=== PATIENT | female | born 1970 | race Caucasian/White ===

== ENCOUNTER 2019-12-07 07:33 | Day surgery (SDC) | payer BC, OTHER ==
[2019-12-05 13:03] VITALS: BMI 29.4
[~2019-12-07 07:33] MED LIST: LACTATED RINGERS 1,000 ML IV SCH
[2019-12-07] MEDS ORDERED: LIDOCAINE 1% (10MG/ML) FOR IV START INTRADERMA ONE (08:45)
[2019-12-07 08:47] VITALS: RESP 16; TEMP 97.2
[2019-12-07] MEDS ORDERED: PROPOFOL 10 MG/ML 20 ML VIAL IV ONE (09:52)
--- NOTE | 2019-12-07 10:10 | P.PCN ---
Date of Procedure: 12/07/19 Procedure(s) Performed: BRIEF HISTORY: Patient is a 49-year-old pleasant female scheduled for an elective colonoscopy as a part of screening for colon cancer. PROCEDURE PERFORMED: Colonoscopy. PREOPERATIVE DIAGNOSIS: Screening for colon cancer. IV sedation per Anesthesia. PROCEDURE: After informed consent was obtained, the patient, was brought into the endoscopy unit. IV sedation was administered by Anesthesia under continuous monitoring. Digital rectal examination was normal. Initially the Olympus CF-160 flexible video colonoscope was then inserted in the rectum, gradually advanced into the cecum without any difficulty. Careful examination was performed as the scope was gradually being withdrawn. Ileocecal valve and the appendiceal orifice were visualized and appeared normal. Prep was excellent. Mucosa of the cecum, ascending colon, transverse colon, descending colon, sigmoid colon, and rectum appeared normal. Retroflexion was performed in the rectum and no lesions were seen. The patient tolerated the procedure well. IMPRESSION: Normal-appearing colon from rectum to cecum with no evidence of colorectal neoplasia. RECOMMENDATIONS: Findings of this examination were discussed with the patient as well as a family. She was advised to have a repeat screening colonoscopy in 10 years..
[2019-12-07 10:27] VITALS: BP 118/55; PULSE 55
== END 2019-12-07 11:00 | disposition home or self-care (01) ==
LOC: ORWHC2ENDO 07:33
PROVIDERS: ATTEND Internal Medicine Gastroenterology
DX: Z12.11 Encounter for screening for malignant neoplasm of colon (principal); E07.9 Disorder of thyroid, unspecified; Z98.51 Tubal ligation status; Z79.890 Hormone replacement therapy
CPT/HCPCS: 81025; 45378; J2704

== ENCOUNTER 2021-01-23 11:38 | Emergency (ER) | payer BC, OTHER ==
[2021-01-23 11:51] VITALS: TEMP 98
[2021-01-23] MEDS ORDERED: methylPREDNISolone SOD SUCCI 125 MG/2 ML VIAL IV STA (13:27)
--- NOTE | 2021-01-23 13:30 | ED ---
General Adult HPI - General Chief complaint: ENT Stated complaint: throat swelling Time Seen by Provider: 01/23/21 12:58 Source: patient, family, RN notes reviewed Mode of arrival: ambulatory Limitations: no limitations - History of Present Illness Initial comments: Patient is a pleasant 50-year-old female presenting to the emergency department with concerns for tightness/swelling of the throat. Onset of symptoms was around 1 week ago. Patient was on antibiotics for questionable ear infection. Patient was eating a chip with sudden onset of symptoms that were mild. Does have somewhat progressed since that time. Patient states she does not feel anxious. Patient states she becomes short of breath and has a hard time when she tries to swallow. At rest symptoms are more mild. No chest pain. Patient does not visualize any swelling on the outside and feels like it is inside of her throat. No history of similar symptoms previously. - Related Data Home Medications Medication Instructions Recorded Confirmed Acyclovir 400 mg PO Q8H 01/23/21 01/23/21 Albuterol Inhaler [Ventolin Hfa 2 puff INHALATION RT-Q4H PRN 01/23/21 01/23/21 Inhaler] Budesonide/Formoterol Fumarate 2 puff INHALATION RT-BID 01/23/21 01/23/21 [Symbicort 80-4.5 Mcg Inhaler] Clobetasol Propionate [Temovate 1 applic TOPICAL DAILY 01/23/21 01/23/21 0.05% Oint] Ibuprofen [Motrin Ib] 400 - 800 mg PO Q8H PRN 01/23/21 01/23/21 Levothyroxine Sodium [Synthroid] 137 mcg PO DAILY 01/23/21 01/23/21 Montelukast [Singulair] 10 mg PO HS 01/23/21 01/23/21 Omeprazole 20 mg PO DAILY 01/23/21 01/23/21 Previous Rx's Medication Instructions Recorded predniSONE [Deltasone] 20 mg PO BID #10 tab 01/23/21 Allergies Allergy/AdvReac Type Severity Reaction Status Date / Time No Known Allergies Allergy Verified 01/23/21 13:42 Review of Systems ROS Statement: Those systems with pertinent positive or pertinent negative responses have been documented in the HPI. ROS Other: All systems not noted in ROS Statement are negative. Constitutional: Denies: fever Eyes: Denies: eye pain ENT: Reports: as per HPI Respiratory: Reports: as per HPI. Denies: cough Cardiovascular: Denies: chest pain Endocrine: Denies: fatigue Gastrointestinal: Denies: abdominal pain Genitourinary: Denies: urgency Musculoskeletal: Denies: back pain Skin: Denies: rash Neurological: Denies: weakness Past Medical History Past Medical History: Asthma, Thyroid Disorder History of Any Multi-Drug Resistant Organisms: None Reported Past Surgical History: Tubal Ligation, Uterine Ablation Past Anesthesia/Blood Transfusion Reactions: No Reported Reaction Past Psychological History: No Psychological Hx Reported Smoking Status: Former smoker Past Alcohol Use History: None Reported Past Drug Use History: None Reported - Past Family History Mother Family Medical History: No Reported History General Exam Limitations: no limitations General appearance: alert, in no apparent distress Head exam: Present: normocephalic Eye exam: Present: normal appearance, PERRL ENT exam: Present: normal oropharynx Neck exam: Present: normal inspection. Absent: tenderness, meningismus, lymphadenopathy, thyromegaly Respiratory exam: Present: normal lung sounds bilaterally Cardiovascular Exam: Present: regular rate, normal rhythm GI/Abdominal exam: Present: soft. Absent: tenderness Extremities exam: Present: normal inspection Neurological exam: Present: alert Psychiatric exam: Present: normal affect, normal mood Skin exam: Present: normal color Course Vital Signs 01/23/21 01/23/21 11:48 14:40 Temperature 98 F Pulse Rate 64 57 L Respiratory 20 20 Rate Blood Pressure 144/86 121/75 O2 Sat by Pulse 98 98 Oximetry EKG Findings - EKG Comments: EKG Findings:: Sinus bradycardia with a rate of 51. RI 136. QRS 86. QT 440. QTc 405. Normal axis. Normal QRS. No acute ST change. Medical Decision Making - Medical Decision Making Patient reevaluated. Patient and family updated. Patient does feel mildly better following steroids. Patient will be prescribed steroids for the next few days. Patient is advised close follow-up with primary care physician and ENT and to return if symptoms worsen - Lab Data Result diagrams: 01/23/21 13:37 01/23/21 13:37 Lab Results 01/23/21 01/23/21 01/23/21 Range/Units 13:37 13:37 14:40 WBC 8.2 (3.8-10.6) k/uL RBC 5.13 (3.80-5.40) m/uL Hgb 14.9 (11.4-16.0) gm/dL Hct 45.9 (34.0-46.0) % MCV 89.5 (80.0-100.0) fL MCH 29.0 (25.0-35.0) pg MCHC 32.4 (31.0-37.0) g/dL RDW 12.1 (11.5-15.5) % Plt Count 225 (150-450) k/uL MPV 9.8 Neutrophils % 68 % Lymphocytes % 25 % Monocytes % 4 % Eosinophils % 1 % Basophils % 1 % Neutrophils # 5.6 (1.3-7.7) k/uL Lymphocytes # 2.0 (1.0-4.8) k/uL Monocytes # 0.3 (0-1.0) k/uL Eosinophils # 0.1 (0-0.7) k/uL Basophils # 0.1 (0-0.2) k/uL Sodium 140 (137-145) mmol/L Potassium 4.5 (3.5-5.1) mmol/L Chloride 104 (98-107) mmol/L Carbon Dioxide 25 (22-30) mmol/L Anion Gap 11 mmol/L BUN 11 (7-17) mg/dL Creatinine 0.80 (0.52-1.04) mg/dL Est GFR (CKD-EPI)AfAm >90 (>60 ml/min/1.73 sqM) Est GFR (CKD-EPI)NonAf 86 (>60 ml/min/1.73 sqM) Glucose 95 (74-99) mg/dL Calcium 10.0 (8.4-10.2) mg/dL Total Bilirubin 0.6 (0.2-1.3) mg/dL AST 23 (14-36) U/L ALT 16 (4-34) U/L Alkaline Phosphatase 82 (38-126) U/L Total Protein 7.7 (6.3-8.2) g/dL Albumin 4.4 (3.5-5.0) g/dL Group A Strep Rapid Negative (Negative) - Radiology Data Radiology results: report reviewed (CT scanned soft tissue neck shows 1.3 cm lymph node. Decreased enhancement of thyroid gland.) Disposition Clinical Impression: Swollen throat Disposition: HOME SELF-CARE Condition: Stable Additional Instructions: Please follow-up with primary care physician in the next day or 2 for recheck. Please also follow-up with ENT in the next couple of days, number provided. Consider scope. Return for difficulty breathing, not tolerating oral intake, worsening symptoms or any other concerns. Prescription for steroids has been sent to pharmacy. Prescriptions: predniSONE [Deltasone] 20 mg PO BID #10 tab Is patient prescribed a controlled substance at d/c from ED?: No Referrals: Sukhdev Berg DO [Primary Care Provider] - 1-2 days Jeyson Kaur MD [STAFF PHYSICIAN] - 1-2 days Time of Disposition: 15:09
[2021-01-23 13:43] LABS: Basophils # (A) 0.1 k/uL (0-0.2); Basophils % (A) 1 %; Eosinophils # (A) 0.1 k/uL (0-0.7); Eosinophils % (A) 1 %; HCT 45.9 % (34.0-46.0); HGB 14.9 gm/dL (11.4-16.0); Lymphocytes % (A) 25 %; MCHC 32.4 g/dL (31.0-37.0); MCV 89.5 fL (80.0-100.0); Mean Platelet Volume 9.8; Monocytes # (A) 0.3 k/uL (0-1.0); Monocytes % (A) 4 %; Neutrophils # (A) 5.6 k/uL (1.3-7.7); Neutrophils % (A) 68 %; Platelet Count 225 k/uL (150-450); RBC 5.13 m/uL (3.80-5.40); RDW 12.1 % (11.5-15.5); WBC 8.2 k/uL (3.8-10.6)
[2021-01-23 14:03] LABS: ALT 16 U/L (4-34); AST 23 U/L (14-36); African American GFR (CKD) >90 (>60 ml/min/1.73 sqM); Albumin 4.4 g/dL (3.5-5.0); Alkaline Phosphatase 82 U/L (38-126); Anion Gap 11 mmol/L; Blood Urea Nitrogen 11 mg/dL (7-17); Carbon Dioxide 25 mmol/L (22-30); Chloride 104 mmol/L (98-107); Glucose 95 mg/dL (74-99); Non-African American GFR(CKD) 86 (>60 ml/min/1.73 sqM); Potassium 4.5 mmol/L (3.5-5.1); Sodium 140 mmol/L (137-145); Total Bilirubin 0.6 mg/dL (0.2-1.3); Total Protein 7.7 g/dL (6.3-8.2)
--- NOTE | 2021-01-23 14:53 | CT ---
EXAMINATION TYPE: CT soft tissue neck w con DATE OF EXAM: 01/23/2021 COMPARISON: None HISTORY: 50-year-old female Throat swelling TECHNIQUE: Contiguous axial scanning of the soft tissues of the neck performed with IV Contrast, cheryl ent injected with 100 mL of Isovue 300. Coronal/sagittal reconstructions performed. CT DLP: 203.5 mGycm Automated exposure control for dose reduction was used. FINDINGS: Visualized intracranial structures and mastoid air cells appear clear. Small 9 mm polyp or mucosal re tention cyst posterior right maxillary sinus. Nasopharynx is clear. Mild bilateral palatine tonsillar hypertrophy with punctate calcifications suggesting sequela of prio r infection. Epiglottis and prevertebral soft tissues within normal limits. Mild lingual tonsillar hypertrophy. Glottic and subglottic structures as well as the tracheal column and visualized upper lungs are clear . Azygos fissure noted. Thyroid gland shows diminished enhancement. Submandibular glands are satisfactory. Parotid glands slightly atrophic. Borderline sized 1.3 cm short axis right upper cervical lymph node, axial image 56 and sagittal image 28. Otherwise, scattered nonenlarged lymph nodes are present on both sides of the neck. Bones: Mild degenerative disc disease C5-C6. IMPRESSION: 1. THE THYROID GLAND IS NOT ENHANCING MUCH EXPECTED. CORRELATE TO EXCLUDE THE POSSIBILITY OF SO ME GLANDULAR INFLAMMATION SUCH SUBACUTE THYROIDITIS. 2. MILD BILATERAL PALATINE TONSILLAR HYPERTROPHY. 3. BORDERLINE SIZED 1.3 CM SHORT AXIS RIGHT UPPER CERVICAL LYMPH NODE PROBABLY REACTIVE. THIS SHOULD BE FOLLOWED CLINICALLY. IF ANY ENLARGING PALPABLE ABNORMALITY IS DETECTED, FOLLOW-UP ULTRASOUND OR CT .
[2021-01-23 15:32] LABS: T4, Free (Free Thyroxine) 1.41 ng/dL (0.78-2.19)
[2021-01-23 17:31] VITALS: BP 139/84; PULSE 60; RESP 18
== END 2021-01-23 17:32 | disposition home or self-care (01) ==
LOC: EC 11:38
DX: R22.1 Localized swelling, mass and lump, neck (principal); J45.909 Unspecified asthma, uncomplicated; E07.9 Disorder of thyroid, unspecified; Z79.51 Long term (current) use of inhaled steroids; Z87.891 Personal history of nicotine dependence; Z79.890 Hormone replacement therapy
CPT/HCPCS: 36415; 93005; 84439; 84481; 80053; 84443; 85025; 87081; 87430; 70491; 99284; 96374; J2930; Q9967

== ENCOUNTER 2021-01-29 17:05 | Emergency (ER) | payer BC, OTHER ==
[2021-01-29] MEDS ORDERED: FAMOTIDINE 20 MG/2 ML VIAL IV STA (17:28)
[2021-01-29] MEDS ORDERED: methylPREDNISolone SOD SUCCI 125 MG/2 ML VIAL IV STA (17:28)
[2021-01-29] MEDS ORDERED: diphenhydrAMINE 50 MG/ML 1 ML VIAL IVP STA (17:28)
[2021-01-29 18:00] LABS: Basophils # (A) 0.1 k/uL (0-0.2); Basophils % (A) 1 %; Eosinophils # (A) 0.1 k/uL (0-0.7); Eosinophils % (A) 1 %; HCT 42.2 % (34.0-46.0); HGB 14.1 gm/dL (11.4-16.0); Lymphocytes % (A) 46 %; MCH 29.6 pg (25.0-35.0); MCHC 33.4 g/dL (31.0-37.0); MCV 88.6 fL (80.0-100.0); Mean Platelet Volume 9.8; Monocytes # (A) 0.6 k/uL (0-1.0); Monocytes % (A) 5 %; Neutrophils # (A) 5.5 k/uL (1.3-7.7); Neutrophils % (A) 46 %; Platelet Count 233 k/uL (150-450); RBC 4.76 m/uL (3.80-5.40); RDW 12.3 % (11.5-15.5); WBC 12.1 k/uL (3.8-10.6)
[2021-01-29 18:07] LABS: Lymphocytes # (A) 5.5 k/uL (1.0-4.8)
[2021-01-29 18:09] LABS: ALT 19 U/L (4-34); AST 21 U/L (14-36); African American GFR (CKD) >90 (>60 ml/min/1.73 sqM); Albumin 3.9 g/dL (3.5-5.0); Alkaline Phosphatase 83 U/L (38-126); Anion Gap 9 mmol/L; Blood Urea Nitrogen 20 mg/dL (7-17); Calcium 9.7 mg/dL (8.4-10.2); Carbon Dioxide 26 mmol/L (22-30); Chloride 101 mmol/L (98-107); Glucose 90 mg/dL (74-99); Non-African American GFR(CKD) 85 (>60 ml/min/1.73 sqM); Potassium 3.7 mmol/L (3.5-5.1); Sodium 136 mmol/L (137-145); Total Bilirubin 0.5 mg/dL (0.2-1.3); Total Protein 6.9 g/dL (6.3-8.2)
[2021-01-29 18:17] LABS: Partial Thromboplastin Time 22.1 sec (22.0-30.0)
--- NOTE | 2021-01-29 18:42 | XR ---
EXAMINATION TYPE: XR soft tissue neck. DATE OF EXAM: January 29, 2021. COMPARISON: CT neck 01/23/2021 HISTORY: Shortness of breath TECHNIQUE: AP and lateral views of the soft tissues of the neck were obtained. FINDINGS: The airway is patent. No radiopaque foreign body. No prevertebral soft tissue swelling. Straightening of the cervical lordosis. IMPRESSION: Unremarkable radiograph soft tissue neck.
--- NOTE | 2021-01-29 18:44 | XR ---
EXAMINATION TYPE: XR chest 2V DATE OF EXAM: 01/29/2021 COMPARISON: NONE HISTORY: Shortness of breath. TECHNIQUE: Frontal and lateral views of the chest are obtained. FINDINGS: There is no focal air space opacity, pleural effusion, or pneumothorax seen. The cardiac silhouette size is within normal limits. Azygos fissure. The osseous structures are intact. IMPRESSION: No acute cardiopulmonary process.
--- NOTE | 2021-01-29 19:19 | ED ---
ENT HPI - General Chief complaint: ENT Stated complaint: revisit - feels like throat is closing Time Seen by Provider: 01/29/21 17:15 Source: patient, EMS Mode of arrival: EMS - History of Present Illness Initial comments: 50-year-old female presents emergency Department with the sensation that her throat is closing off. Patient was seen in the emergency department on the for similar complaint. Reports that previous to that, approximately a week and a half ago she was eating food when she began choking on one of the fragments. States that she had some difficulty breathing and swallowing however was eventually able to pass the food. She reports feeling fine the next day. She subsequently then began having painful swallowing with a sensation that something was in her throat. She felt a primary care doctor they placed her on azithromycin. States she's been taking the medications as directed without improvement. She came into the emergency room on 8. They did perform a CT of her neck which failed to demonstrate any acute findings. She was placed on st eroids. States that she has been taking the medication as directed. She ended up having an episode today where she was at work and had sudden onset that someone was grabbing her throat. That she couldn't breathe or swallow. She called an ambulance and brought her into the emergency room. She denies any new exposures. No history of anaphylaxis. Does have a history of asthma however states is very mild and only exercise-induced. She denies any chest pain or cough. No nausea or vomiting. Denies hives. No other alleviating, precipitating or modifying factors - Related Data Home Medications Medication Instructions Recorded Confirmed Albuterol Inhaler [Ventolin Hfa 2 puff INHALATION RT-Q4H PRN 01/23/21 02/04/21 Inhaler] Budesonide/Formoterol Fumarate 2 puff INHALATION RT-BID 01/23/21 02/04/21 [Symbicort 80-4.5 Mcg Inhaler] Levothyroxine Sodium [Synthroid] 137 mcg PO DAILY 01/23/21 02/04/21 Montelukast [Singulair] 10 mg PO HS 01/23/21 02/04/21 Omeprazole 20 mg PO DAILY 01/23/21 02/04/21 predniSONE 10 mg PO DIRECTED 02/04/21 02/04/21 Previous Rx's Medication Instructions Recorded EPINEPHrine (Auto Inject) [Epipen] 0.3 mg IM ONCE PRN #2 each 01/29/21 Allergies Allergy/AdvReac Type Severity Reaction Status Date / Time No Known Allergies Allergy Verified 02/04/21 12:56 Review of Systems ROS Statement: Those systems with pertinent positive or pertinent negative responses have been documented in the HPI. ROS Other: All systems not noted in ROS Statement are negative. Past Medical History Past Medical History: Asthma, Thyroid Disorder History of Any Multi-Drug Resistant Organisms: None Reported Past Surgical History: Tubal Ligation, Uterine Ablation Past Anesthesia/Blood Transfusion Reactions: No Reported Reaction Past Psychological History: No Psychological Hx Reported Smoking Status: Former smoker Past Alcohol Use History: None Reported Past Drug Use History: None Reported - Past Family History Mother Family Medical History: No Reported History General Exam General appearance: alert, anxious, in distress Head exam: Present: atraumatic, normocephalic, normal inspection Eye exam: Present: normal appearance, PERRL, EOMI. Absent: scleral icterus, conjunctival injection, periorbital swelling ENT exam: Present: normal exam, mucous membranes moist Neck exam: Present: normal inspection. Absent: tenderness, meningismus, lymphadenopathy, thyromegaly Respiratory exam: Present: normal lung sounds bilaterally. Absent: respiratory distress, wheezes, rales, rhonchi, stridor Cardiovascular Exam: Present: regular rate, normal rhythm, normal heart sounds. Absent: systolic murmur, diastolic murmur, rubs, gallop, clicks GI/Abdominal exam: Present: soft, normal bowel sounds. Absent: distended, tenderness, guarding, rebound, rigid Extremities exam: Present: normal inspection, full ROM, normal capillary refill. Absent: tenderness, pedal edema, joint swelling, calf tenderness Back exam: Present: normal inspection Neurological exam: Present: alert, oriented X3, CN II-XII intact Psychiatric exam: Present: normal affect, normal mood Skin exam: Present: warm, dry, intact, normal color. Absent: rash Course Vital Signs 01/29/21 01/29/21 01/29/21 17:14 18:44 21:00 Temperature 98 F 97.5 F L Pulse Rate 65 52 L 54 L Respiratory 18 18 16 Rate Blood Pressure 165/88 139/77 158/86 O2 Sat by Pulse 99 98 98 Oximetry 01/29/21 01/29/21 01/29/21 21:58 22:07 22:47 Temperature 97.6 F Pulse Rate 64 71 71 Respiratory 16 Rate Blood Pressure 109/64 O2 Sat by Pulse 98 Oximetry 01/29/21 23:33 Temperature 97.5 F L Pulse Rate 82 Respiratory 16 Rate Blood Pressure 125/70 O2 Sat by Pulse 98 Oximetry Medical Decision Making - Medical Decision Making Upon arrival patient was placed into hallway at 11. A thorough history and physical exam was performed. IV is established by EMS. She was given 25 mg of Benadryl by them. She is given an additional 25 mg of Benadryl from os as well as 125 of Solu-Medrol and 20 mg of Pepcid. Laboratories is her conducted. I did review the patient's CT from the other day. Laboratory studies are reviewed. I did perform a chest x-ray which demonstrates no acute process as well as a soft tissue neck x-ray. I did call and speak with Dr. Ramey. He does request that the patient had a CT of her chest performed which is completed and is negative. I spoke with him once again. He does present to the emergency department and does scope the patient. He gave her epinephrine but states that she did not have any real improvement in her symptoms. At this time he states that her airway is stable without signs of compromise. She will be placed on a 15 day course of prednisone. She will also be given a prescription for an EpiPen. She is to follow-up with Dr. Ramey in office. Return to the emergency room for any new or worsening symptoms. Patient agreed to treatment plan she was discharged in stable condition - Lab Data Result diagrams: 01/29/21 17:51 01/29/21 17:51 Lab Results 01/29/21 01/29/21 01/29/21 Range/Units 17:51 17:51 17:51 WBC 12.1 H (3.8-10.6) k/uL RBC 4.76 (3.80-5.40) m/uL Hgb 14.1 (11.4-16.0) gm/dL Hct 42.2 (34.0-46.0) % MCV 88.6 (80.0-100.0) fL MCH 29.6 (25.0-35.0) pg MCHC 33.4 (31.0-37.0) g/dL RDW 12.3 (11.5-15.5) % Plt Count 233 (150-450) k/uL MPV 9.8 Neutrophils % 46 % Lymphocytes % 46 % Monocytes % 5 % Eosinophils % 1 % Basophils % 1 % Neutrophils # 5.5 (1.3-7.7) k/uL Lymphocytes # 5.5 H (1.0-4.8) k/uL Monocytes # 0.6 (0-1.0) k/uL Eosinophils # 0.1 (0-0.7) k/uL Basophils # 0.1 (0-0.2) k/uL PT 11.0 (9.0-12.0) sec INR 1.0 (<1.2) APTT 22.1 (22.0-30.0) sec Sodium 136 L (137-145) mmol/L Potassium 3.7 (3.5-5.1) mmol/L Chloride 101 (98-107) mmol/L Carbon Dioxide 26 (22-30) mmol/L Anion Gap 9 mmol/L BUN 20 H (7-17) mg/dL Creatinine 0.81 (0.52-1.04) mg/dL Est GFR (CKD-EPI)AfAm >90 (>60 ml/min/1.73 sqM) Est GFR (CKD-EPI)NonAf 85 (>60 ml/min/1.73 sqM) Glucose 90 (74-99) mg/dL Plasma Lactic Acid Jack (0.7-2.0) mmol/L Calcium 9.7 (8.4-10.2) mg/dL Total Bilirubin 0.5 (0.2-1.3) mg/dL AST 21 (14-36) U/L ALT 19 (4-34) U/L Alkaline Phosphatase 83 (38-126) U/L Troponin I (0.000-0.034) ng/mL Total Protein 6.9 (6.3-8.2) g/dL Albumin 3.9 (3.5-5.0) g/dL 01/29/21 01/29/21 Range/Units 17:51 17:51 WBC (3.8-10.6) k/uL RBC (3.80-5.40) m/uL Hgb (11.4-16.0) gm/dL Hct (34.0-46.0) % MCV (80.0-100.0) fL MCH (25.0-35.0) pg MCHC (31.0-37.0) g/dL RDW (11.5-15.5) % Plt Count (150-450) k/uL MPV Neutrophils % % Lymphocytes % % Monocytes % % Eosinophils % % Basophils % % Neutrophils # (1.3-7.7) k/uL Lymphocytes # (1.0-4.8) k/uL Monocytes # (0-1.0) k/uL Eosinophils # (0-0.7) k/uL Basophils # (0-0.2) k/uL PT (9.0-12.0) sec INR (<1.2) APTT (22.0-30.0) sec Sodium (137-145) mmol/L Potassium (3.5-5.1) mmol/L Chloride (98-107) mmol/L Carbon Dioxide (22-30) mmol/L Anion Gap mmol/L BUN (7-17) mg/dL Creatinine (0.52-1.04) mg/dL Est GFR (CKD-EPI)AfAm (>60 ml/min/1.73 sqM) Est GFR (CKD-EPI)NonAf (>60 ml/min/1.73 sqM) Glucose (74-99) mg/dL Plasma Lactic Acid Jack 1.1 (0.7-2.0) mmol/L Calcium (8.4-10.2) mg/dL Total Bilirubin (0.2-1.3) mg/dL AST (14-36) U/L ALT (4-34) U/L Alkaline Phosphatase (38-126) U/L Troponin I <0.012 (0.000-0.034) ng/mL Total Protein (6.3-8.2) g/dL Albumin (3.5-5.0) g/dL - EKG Data EKG Comments: EKG demonstrates sinus tachycardia with a ventricular rate of 49. [place] interval 124. QRS 92. QTC 386. No acute st elevations or depressions concerning for ischemic changes. No signs of high degree block Disposition Clinical Impression: Globus sensation Disposition: HOME SELF-CARE Condition: Stable Instructions (If sedation given, give patient instructions): Anaphylaxis (ED) Additional Instructions: Please follow-up with the ENT as directed. Take the steroids as directed. Return to the emergency room for any new or worsening symptoms Prescriptions: EPINEPHrine (Auto Inject) [Epipen] 0.3 mg IM ONCE PRN #2 each PRN Reason: Anaphylaxis Is patient prescribed a controlled substance at d/c from ED?: No Referrals: Sukhdev Berg DO [Primary Care Provider] - 1-2 days Nasim Rubio DO [Doctor of Osteopathic Medicine] - 1-2 days Time of Disposition: 22:55
[2021-01-29] MEDS ORDERED: RX INFO: IV CONTRAST WAS GIVEN 1 EACH MISC MISCELLANE PRN (19:36)
--- NOTE | 2021-01-29 20:28 | CT ---
EXAMINATION TYPE: CT chest w con DATE OF EXAM: 01/29/2021 COMPARISON: CT soft tissue neck January 2021. HISTORY: airway foreign body CT DLP: 255.1 mGycm Automated exposure control for dose reduction was used. TECHNIQUE: CT scan of the chest is performed with IV Contrast, patient injected with 100 mL of Isovue 300. MIP Images are created on CT scanner and reviewed. 3D reconstructed images are created on an independent workstation and reviewed. FINDINGS: LUNGS: The lungs are grossly clear, there is no concerning parenchymal mass or nodule identified. T here is no pleural effusion or pneumothorax seen. The tracheobronchial tree is patent. MEDIASTINUM: There are no greater than 1 cm hilar or mediastinal lymph nodes. No pericardial effusi on is seen. Contrast opacifies the central pulmonary arterial vasculature without of the segmental ve ssels without filling defect. Limited assessment of the subsegmental and subsegmental vessels due to poor opacification. OTHER: No additional significant abnormality is seen. IMPRESSION: 1. No pulmonary embolus. 2. No acute process in the chest.
[2021-01-29 21:08] VITALS: RESP 16
[2021-01-29] MEDS ORDERED: EPINEPHrine 10 ML SYRINGE (0.1 MG/ML) IM STA ×4 (21:50→22:15)
[2021-01-29] MEDS ORDERED: predniSONE 20 MG TAB PO STA (22:53)
[2021-01-29 23:37] VITALS: BP 125/70; PULSE 82; TEMP 97.5
--- NOTE | 2021-01-30 09:40 | HP ---
HISTORY AND PHYSICAL DATE OF SERVICE: 01/29/2021. REFERRING PHYSICIAN: Dr. Maria Ines Mon. CHIEF COMPLAINT: Throat tightness. HISTORY OF PRESENT ILLNESS: This patient tells me about 2 weeks ago her throat started to feel tight. Two days previously she aspirated on a Dorito chip. The emergency room physician did a chest CT scan and neck CT scan which was normal. I am unable to see the results as the computer system here at [facility] has gone down, but the emergency room physician said that the CT scan of the chest and neck was unremarkable. She gets throat tightening, worse after she eats. She tells me her dysphagia is a bit of a muscular type of tightness to her throat. She points to the thyroid gland. She has a longstanding history of Joan's. Her throat feels like it is squeezing shut. She works at a local [employer] department. She has been found to be ALLERGIC TO POLLEN AND MOLD. Her diet is unremarkable. She has been worked up at an asthma clinic at the [facility] and was diagnosed with asthma. She was found to have shortness of breath with exercise many years ago and is currently on Singulair. PAST MEDICAL HISTORY: Positive for Joan's thyroiditis. PAST SURGICAL HISTORY: Positive for tubal ligation and uterine ablation. ALLERGIES: POLLEN AND MOLD, but no known drug allergies. SOCIAL HISTORY: Denies smoking, drinking. REVIEW OF SYSTEMS: Twelve point examination was unremarkable. See H and P. PHYSICAL EXAMINATION: Vital signs are stable. Patient is afebrile. GENERAL: Patient is alert, oriented, pleasant, 50-year-old white female in no apparent distress. Well nourished, well developed. No gross abnormalities. HEAD: Normocephalic. The face is symmetric. There is acne scarring seen. The scalp shows no tumors or masses. Ear: Auricles are well formed. The canals are clear. Tympanic membranes without bulging or retraction. Nose shows some allergic type swelling. Inferior turbinates are hypertrophic positive. Mouth and throat: No oral lesions are seen. Tongue, tonsillar fossa, teeth, mouth all appear unremarkable. Neck shows some tenderness to the thyroid gland, but no tumors or masses were palpable. IMPRESSIONS: Dysphagia and globus pharyngeus rule out Joan's, rule out anaphylaxis. PLAN OF TREATMENT: I had instructed the nurse to give her 2 injections of epinephrine 0.5 mL each. After the injections, she tells me she was slightly better at about 20% but not significant. Working diagnosis is most likely Joan's as the etiology. I have instructed to the ER doctor to place her on prednisone and give her an EpiPen. I have given her my card. She is to follow up with me in the office next week. We will give her 60 mg of prednisone tapering over 3 weeks and an EpiPen in case she worsens. She is to call me if any problems arise in the interim. She is also to follow up with her family physician regarding her Joan's and possibly see an social worker clinical or crm marketing specialist. Repeat food allergy testing is a strong consideration if this problem is persistent. MMODL / IJN: [id number] /
--- NOTE | 2021-01-30 09:43 | OP ---
OPERATIVE REPORT TYPE OF CASE: Elective. SURGEONS: Nasim Rubio D.O. Sponge, instrument and needle count correct. ANESTHESIA: None. PREOPERATIVE DIAGNOSIS: Dysphagia, throat closing. POSTOPERATIVE DIAGNOSIS: Dysphagia, throat closing. OPERATIVE PROCEDURE: Flexible nasopharyngolaryngoscopy. OPERATIVE INDICATIONS: This patient has symptoms of globus pharyngeus, dysphagia and throat closing. Endoscopy to evaluate the airway to the vocal cords was recommended. PROCEDURE DETAILS: An ENF type GP nasopharyngoscope was inserted into the patient's nares on the right side. We followed the floor of the nose to the nasopharynx. There was no signs of any nasopharyngeal pathology. The oropharynx had no pathology. There was some allergic- type drainage seen. The hypopharynx shows some nonspecific erythema appeared to be probable allergic. Reflux may be a consideration, but doubtful. No tumors or masses. Vocal cords are working well. No obstructive phenomenon. I see no subglottic tissues. Epiglottis, base of tongue, and lateral pharynx all appear unremarkable. Mucosa looks good. Allergic-type swelling was noted. The scope was removed and the patient tolerated this well. MMODL / IJN: [id number] /
== END 2021-01-29 23:42 | disposition home or self-care (01) ==
LOC: EC 17:05
DX: R09.89 Other specified symptoms and signs involving the circulatory and respiratory systems (principal); J45.909 Unspecified asthma, uncomplicated; E07.9 Disorder of thyroid, unspecified; Z87.891 Personal history of nicotine dependence; Z79.51 Long term (current) use of inhaled steroids; Z79.890 Hormone replacement therapy
CPT/HCPCS: 96374; 96375; 99285; 96372 ×2; 36415; 93005; 80053; 83605; 84484; 85025; 85610; 85730; 70360; 71046; 71260; J0171; J1200; J2930; J7512; Q9967

== ENCOUNTER 2021-02-06 08:34 | Day surgery (SDC) | payer BC, OTHER ==
[2021-02-04 13:04] VITALS: BMI 23.0
[2021-02-06 09:13] VITALS: TEMP 97.6
[2021-02-06 09:25] LABS: Glucose,Whole Blood 85 mg/dL (75-99)
[2021-02-06] MEDS ORDERED: PROPOFOL 10 MG/ML 20 ML VIAL IV ONE (10:08)
[2021-02-06] MEDS ORDERED: LIDOCAINE 1% INJ 10MG/ML (20 ML MDV) ONE (10:08)
--- NOTE | 2021-02-06 10:14 | P.HPIHPCON ---
History of Present Illness H&P Date: 02/06/21 50-year-old female presents today for upper endoscopy. She states that recently, she has had difficulty tolerating solid foods. She feels as if food is going to get and feels a constant pressure in the throat. She also feels as if she is going to regurgitate food, however has not had to do this. She was recently started on omeprazole but has only started taking that 2 days ago. She is not sure if there is any effect yet. No additional symptoms at this time. Consent for Procedure: I have explained the operation/procedure to the patient, including the risks, benefits, side effects, alternative therapies (including not receiving the proposed treatment or service), the likelihood of the patient achieving his/her goals, and potential recuperation problems for the procedure/sedation/analgesia, as well as any blood products, if indicated. I also explained to the patient the risks, benefits and side effects of the alternatives, as well as the risks related to not receiving the proposed procedure, care, treatment, or services. - Review of Systems All systems: negative Past Medical History Past Medical History: Asthma, GERD/Reflux, Thyroid Disorder Additional Past Medical History / Comment(s): WAS SEEN IN ER R/T FELT LIKE THROAT WAS CLOSING 01/29/21. VERTIGO AT TIMES History of Any Multi-Drug Resistant Organisms: None Reported Past Surgical History: Tubal Ligation, Uterine Ablation Past Anesthesia/Blood Transfusion Reactions: No Reported Reaction Smoking Status: Former smoker - Past Family History Mother Family Medical History: No Reported History Medications and Allergies Home Medications Medication Instructions Recorded Confirmed Type Albuterol Inhaler [Ventolin Hfa 2 puff INHALATION RT-Q4H PRN 01/23/21 02/04/21 History Inhaler] Budesonide/Formoterol Fumarate 2 puff INHALATION RT-BID 01/23/21 02/04/21 History [Symbicort 80-4.5 Mcg Inhaler] Levothyroxine Sodium [Synthroid] 137 mcg PO DAILY 01/23/21 02/04/21 History Montelukast [Singulair] 10 mg PO HS 01/23/21 02/04/21 History Omeprazole 20 mg PO DAILY 01/23/21 02/04/21 History EPINEPHrine (Auto Inject) [Epipen] 0.3 mg IM ONCE PRN #2 each 01/29/21 02/04/21 Rx predniSONE 10 mg PO DIRECTED 02/04/21 02/04/21 History Allergies Allergy/AdvReac Type Severity Reaction Status Date / Time No Known Allergies Allergy Verified 02/04/21 12:56 Surgical - Exam Osteopathic Statement: *. No significant issues noted on an osteopathic structural exam other than those noted in the History and Physical/Consult. Vital Signs Temp Pulse Resp BP Pulse Ox 97.6 F 55 L 18 148/79 99 02/06/21 09:10 02/06/21 09:10 02/06/21 09:10 02/06/21 09:10 02/06/21 09:10 - General no distress - ENT no hearing loss - Respiratory normal respiratory effort - Abdomen Abdomen: soft, non tender Assessment and Plan Plan: Plan is for upper endoscopy. Risks, benefits and alternatives were provided to the patient. Further recommendations after procedure is completed.
--- NOTE | 2021-02-06 10:23 | P.PCN ---
Date of Procedure: 02/06/21 Preoperative Diagnosis: Dysphagia GERD Postoperative Diagnosis: Hiatal hernia Gastritis Duodenitis Procedure(s) Performed: EGD with biopsy Anesthesia: MAC Surgeon: Milind Martinez Pathology: other (Biopsies of esophagus, antrum, duodenum) Condition: stable Disposition: same day Indications for Procedure: 50-year-old female with recent dysphagia. Plan is for upper endoscopy. Risks, benefits and alternatives were provided to the patient. Operative Findings: Mild hiatal hernia Gastritis and duodenitis Description of Procedure: The patient was brought to the endoscopy suite and placed in left lateral decubitus position and adequate sedation was achieved using conscious sedation. A bite block was placed and an endoscope was placed in the oropharynx and advanced under endoscopic visualization. The endoscope was advanced through the esophagus into the stomach, through the gastric antrum and in through the pylorus. The third portion of the duodenum was visualized. The endoscope was then slowly withdrawn. The first portion of duodenum was noted to have mild inflammatory changes. Biopsies were taken. The antrum was also noted to have inflammatory changes. Biopsies were taken. There is no evidence of ulceration. The gastric body distended normally and the gastric folds appeared normal and flattened with insufflation. A retroflexed view of the fundus and GE junction revealed a very mild hiatal hernia. The esophagus appeared endoscopically normal. Biopsies were taken. There were no areas of stricture and no masses noted. Excess air was removed and the scope was withdrawn and the procedure completed. The patient was then sent to postanesthesia care unit in stable condition.
[2021-02-06 10:30] VITALS: RESP 16
[2021-02-06 10:41] VITALS: BP 145/82; PULSE 54
== END 2021-02-06 11:19 | disposition home or self-care (01) ==
LOC: ORWHC2ENDO 08:34
PROVIDERS: ATTEND Surgery
DX: R13.10 Dysphagia, unspecified (principal); K21.9 Gastro-esophageal reflux disease without esophagitis; K29.50 Unspecified chronic gastritis without bleeding; J45.909 Unspecified asthma, uncomplicated; Z87.891 Personal history of nicotine dependence; E07.9 Disorder of thyroid, unspecified; Z79.899 Other long term (current) drug therapy; R00.1 Bradycardia, unspecified
CPT/HCPCS: 81025; 88305; 43239; J2001; J2704

== ENCOUNTER → 2021-02-09 | Outpatient (CLI) | payer BC, OTHER ==
[2021-02-09 21:38] LABS: T4, Free (Free Thyroxine) 1.9 ng/dL (0.800-1.800)
== END | disposition home or self-care (01) ==
LOC: LABWHC1 10:18
PROVIDERS: ATTEND Otolaryngology
DX: E06.9 Thyroiditis, unspecified (principal); R53.83 Other fatigue
CPT/HCPCS: 36415; 84439; 84443; 86376; 86800

== ENCOUNTER → 2021-05-25 | Outpatient (CLI) | payer BC, OTHER ==
[2021-05-25 14:35] LABS: HGB 13.7 g/dL (12.0-15.0); MCH 28.7 pg (27.0-32.0); MCHC 31.9 g/dL (32.0-37.0); MCV 90.1 fL (80.0-97.0); Mean Platelet Volume 11.6 fL (9.5-12.2); NRBC Per 100 WBC 0 /100 WBCS (0.0-0.0); Platelet Count 236 X 10*3/uL (140-440); RBC 4.77 X 10*6/uL (4.10-5.20); RDW 11.9 % (11.5-14.5); WBC 4.54 X 10*3/uL (4.50-10.00)
[2021-05-25 14:53] LABS: ALT 12 U/L (8-44); AST 16 U/L (13-35); African American GFR (CKD) 85.8 (60.0-200.0); Albumin 4.5 g/dL (3.8-4.9); Albumin/Globulin Ratio 1.67 (1.60-3.17); Alkaline Phosphatase 65 U/L (41-126); BUN/Creat Ratio 8.67 Ratio (12.00-20.00); Blood Urea Nitrogen 7.8 mg/dL (9.0-27.0); Calcium 9.7 mg/dL (8.7-10.3); Chloride 102 mmol/L (96-109); Globulin 2.7 g/dL (1.6-3.3); Glucose 82 mg/dL (70-110); LDL Cholesterol,Calculated 158.9 mg/dL (0.0-131.0); Potassium 4.2 mmol/L (3.5-5.5); Sodium 140 mmol/L (135-145); Total Protein 7.2 g/dL (6.2-8.2)
== END | disposition home or self-care (01) ==
LOC: LABWHC1 08:11
PROVIDERS: ATTEND Internal Medicine Endocrinology, Diabetes & Metabolism
DX: E03.8 Other specified hypothyroidism (principal); K21.9 Gastro-esophageal reflux disease without esophagitis
CPT/HCPCS: 36415; 80053; 80061; 82533; 83036; 84443; 85027

== ENCOUNTER → 2021-05-25 | Outpatient (CLI) | payer BC, OTHER ==
--- NOTE | 2021-05-29 11:41 | HM ---
HOLTER MONITOR REPORT DATE OF STUDY: 05/25/2021. INDICATION: Cardiac arrhythmia. The patient was monitored for 24 hours. The baseline rhythm appeared to be sinus mechanism with a minimum heart rate of 44, max heart rate 115 and average heart rate of 64 beats per minute. Ventricular ectopic events presented in less than 1% of the total beats counted and presented mainly isolated PVCs. Supraventricular ectopic events were reported rarely, but the patient did have one short episode of atrial tachycardia. No significant sinus pause or sinus arrest. No diary was attached to the study. CONCLUSION: 1. Sinus rhythm as baseline mechanism. 2. Rare ventricular ectopic events. 3. Rare supraventricular ectopic events. 4. The patient did have one short episode of atrial tachycardia. 5. No significant sinus pause or sinus arrest. 6. No diary was attached to the study. MMODL / IJN: [id number] /
== END | disposition home or self-care (01) ==
LOC: RADECHMAIN 07:33
PROVIDERS: ATTEND Family Medicine
DX: R00.2 Palpitations (principal)
CPT/HCPCS: 93225; 93226

== ENCOUNTER → 2021-08-13 | Outpatient (CLI) | payer BC, OTHER ==
[2021-08-13 14:37] VITALS: BP 136/81; PULSE 69; RESP 18; TEMP 98.7
--- NOTE | 2021-08-13 15:17 | P.CON ---
Consult Note - . Consult date: 08/13/21 Assessment/Plan:: HISTORY OF PRESENT ILLNESS: 51 yr old female with at side as a referral from Dr Bolton presents today with chronic & severe neck and upper back discomfort secondary to mild spinal stenosis, bilateral neuroforaminal stenoses, facet arthropathy and C5-C6 DDD for evaluation. Pt states her neck discomfort is not described as painful as much as she thinks it is "pressure." Patient states she has been experiencing intermittent and unprovoked difficulty breathing and swallowing since December 2020. Patient came to the ER for evaluation of after mentioned. She has since followed up with 3 ENT physicians, gastroenterologists, internists and today with pain management. Upon examination, patient did not exhibit any cervical pain. Patient however did complain of upper back pain, 2 out of 10 in intensity, localized to the midportion of her thoracic spine with radiation of tingling and numbness left and right of midline into the paraspinal muscles. I reviewed CAT scan and MRIs of the cervical spine with the patient. She further would like to explore her upper back issues and is agreeable to an MRI of the thoracic spine. Patient states tingling and numbness is provoked with rotation, extension and flexion of the spine. It is relieved by reclining. Past Medical History: Asthma, GERD/Reflux, Thyroid Disorder Surgical History: Tubal Ligation, Uterine Ablation Social History: Former smoker. No ETOH use. No illicit drug use. Family History: Mother- No Reported History All: NKDA Meds: See list REVIEW OF ORGAN SYSTEMS: CONSTITUTIONAL: No fevers or chills. No recent weight loss. HEENT: No visual acuity loss, eye pain, difficulties with hearing. No nosebleeds. No difficulty swallowing. RESPIRATORY: Denies any troubles with breathing or dyspnea on exertion. CARDIOVASCULAR: Denies any chest pain, palpitations, or recent heart attacks. GASTROINTESTINAL: Denies fatty food intolerance. Has change in bowel habits and gas bloat. GENITOURINARY: Denies any blood in urine. Has increased urinary frequency. NEUROLOGICAL: + numbness and tingling along the distal extremities. No seizure disorders or headaches. MUSCULOSKELETAL: + back pain SKIN: No skin cancer. No rash. PSYCHIATRIC: Denies current depression or suicidal thoughts. ENDOCRINE: Denies current thyroid disorders. Denies any blood sugar glucose intolerance. HEME/LYMPHATIC: Denies any lumps and bumps around the neck. History of deep venous thrombosis. ALLERGY/IMMUNOLOGY: No immunoglobulin therapy. No immune deficiencies. BREAST: Denies current breast lumps, pain or nipple discharge. Physical Examinations : Constitutional : Cooperative , not in acute distress . HEENT: Neck supple. No Lymphadenopathy. Normal thyroid size . Eyes no ptosis , no icterus, no photophobia . Hearing intact. Normal oropharynx. No Thrush. Respiratory : Chest clear to auscultations bilaterally. No wheezing. No rhonchi. Cardiovascular : Regular rate and rhythm , S1 / S2. No S3 . No S4. Gastrointestinal : Abdomen soft. No tenderness. Bowel sounds x 4. No organomegaly . Genitourinary : Deferred. Neurologic : Cranial nerve II to XII intact. No focal neur ological deficits. Psychiatric : alert & oriented x 3. Matching mood & appropriate affect. Judgment & insight intact. Lymphatic No Lymphadenopathy. Musculoskeletal : Cervical Spine Motor strength in the deltoid and biceps: Normal right side. Normal Left side Motor strength biceps and the wrist extensors: Normal right side . Normal left side Motor strength in the triceps muscle: Normal right side. Normal left side Deep tendon reflexes: Normal at the biceps. Normal at Brachioradialis. Normal at triceps Cervical facet loading test: positive bilaterally Spurling test: positive bilaterally Neck distraction test: positive bilaterally Norah sign: positive bilaterally Thoracic spine Paraspinal tenderness to palpation over BL T6-T9 Lumbar spine Motor strength lower extremities ,thigh and legs 5/5 Right side , 5/5 Left side Deep tendon reflexes : Normal Knee Jerk. Normal Ankle Jerk Vertebral body tenderness over Lumbar facet Loading Test: positive Right / positive Left Range of motion of the lumbar spine Flexion 30 degrees, extension 10 degrees Straight Leg Raise test: Left/ Right positive at degree Deandre test: positive right / positive left. Severe tenderness over the Sacroiliac joint on the Right / Left sides Gaenslen test: positive bilaterally Seated flexion test: positive bilaterally. Imaging: MRI without contrast of the cervical spine from 06/17/21: Mild spinal stenosis, BL neuroforaminal stenoses & facet arthropathy CT Scan without contrast of the cervical spine from 01/23/21: Subacute thyroiditis, borderline sized 1.3cm right upper cervical lymphadenopathy and mild C5-C6 DDD. Assessment/ Plan : Cervical DDD, Cervical stenosis, Thoracic strain Recommendation of x-rays of the thoracic spine. She may return to the office within 4 weeks for re-evaluation. Possible MRI of the thoracic spine may be indicated. All questions answered. I have spent greater than 50 minutes on patient care today. Dr Kenyon was available by phone for the evaluation of this patient. The time was used to review the medical records including relevant urine studies and Prescription history (MAPs), review of the available imaging, evaluation and examination of the patient, coordination of care with the medical staff and if applicable referring physicians, as well as creation of the medical record PQRS Measure Charge Sheet Mode of Arrival: Ambulatory - Pain Location Neck Non-Pharmacological Interventions: Position/Reposition, Relaxation Technique Pharmacological Interventions: PRN Medication PQRS Narrative: Blood Pressure 136/81 Pain Intensity [Neck] 2 Scale Used Numeric (1 - 10) Hx Alcohol Use (MH) No Home Medications: Ambulatory Orders Albuterol Inhaler [Ventolin Hfa Inhaler] 2 puff INHALATION RT-Q4H PRN 01/23/21 Budesonide/Formoterol Fumarate [Symbicort 80-4.5 Mcg Inhaler] 2 puff INHALATION RT-BID 01/23/21 Levothyroxine Sodium [Synthroid] 137 mcg PO DAILY 01/23/21 Montelukast [Singulair] 10 mg PO HS 01/23/21 Omeprazole 20 mg PO DAILY 01/23/21 EPINEPHrine (Auto Inject) [Epipen] 0.3 mg IM ONCE PRN #2 each 01/29/21 predniSONE 10 mg PO DIRECTED 02/04/21
== END | disposition home or self-care (01) ==
LOC: PNWHC3 13:28
PROVIDERS: ATTEND Specialist
DX: M48.00 Spinal stenosis, site unspecified (principal); M46.92 Unspecified inflammatory spondylopathy, cervical region
CPT/HCPCS: 99211

== ENCOUNTER → 2021-08-29 | Outpatient (CLI) | payer BC, OTHER ==
--- NOTE | 2021-08-30 19:46 | XR ---
EXAMINATION TYPE: XR thoracic spine complete, 4 views DATE OF EXAM: 08/29/2021 Comparison: None Clinical History: 51-year-old female M47.814, upper back pain. Findings: 11 rib-bearing thoracic vertebral bodies. Normal variant azygos fissure. All pedicles are visualized. There is mild degenerative disc disease in the upper third thoracic spine. Vertebral body heights ar e preserved and alignment is maintained. Impression: Mild degenerative disc disease in the upper third thoracic spine. No vertebral compression collapse o r malalignment.
== END | disposition home or self-care (01) ==
LOC: RADXRMAIN 07:33
PROVIDERS: ATTEND Specialist
DX: M51.34 Other intervertebral disc degeneration, thoracic region (principal); M47.814 Spondylosis without myelopathy or radiculopathy, thoracic region
CPT/HCPCS: 72072

== ENCOUNTER → 2021-11-23 | Outpatient (CLI) | payer BC, OTHER | END | disposition home or self-care (01) | LOC: LABWHC1 09:56 | PROVIDERS: ATTEND Internal Medicine Endocrinology, Diabetes & Metabolism | DX: E03.8 Other specified hypothyroidism (principal) | CPT/HCPCS: 36415; 84443 ==

== ENCOUNTER → 2022-01-23 | Outpatient (CLI) | payer BC, OTHER ==
--- NOTE | 2022-01-23 12:13 | MR ---
MRI thoracic spine without contrast. HISTORY: Mid back pain and shoulder pain. COMPARISON: None. TECHNIQUE: Multiecho multiplanar images of the thoracic spine were obtained without contrast. FINDINGS: The thoracic vertebral segments are normal in height and alignment and there is no fracture or sublux ation. The disc spaces are well-maintained in height and there is no significant degenerative disc disease. There are no thoracic disc herniations. Within the thoracic cord from T7 through. Paraspinal soft tissues are unremarkable. The neuroforamina are widely patent. IMPRESSION: Small syrinx from T7 through T9 within the thoracic cord. No other significant abnormality seen. Ther e is no thoracic spinal stenosis, thoracic disc herniation, thoracic vertebral fracture or malalignm ent.
== END | disposition home or self-care (01) ==
LOC: RADMRIMAIN 09:57
PROVIDERS: ATTEND Physician Assistant Medical
DX: M47.814 Spondylosis without myelopathy or radiculopathy, thoracic region (principal)
CPT/HCPCS: 72146

== ENCOUNTER → 2022-11-19 | Outpatient (CLI) | payer BC, OTHER | END | disposition home or self-care (01) | LOC: LABWHC1 11:00 | PROVIDERS: ATTEND Internal Medicine Endocrinology, Diabetes & Metabolism | DX: E03.8 Other specified hypothyroidism (principal) | CPT/HCPCS: 36415; 84443 ==

== ENCOUNTER → 2023-04-23 | Outpatient (CLI) | payer BC, OTHER ==
[2023-04-23 13:43] LABS: Basophils # (A) 0.06 X 10*3/uL (0.00-0.10); Basophils % (A) 0.9 %; Eosinophils % (A) 1.6 %; HCT 42.5 % (37.2-46.3); HGB 13.9 g/dL (12.0-15.0); Lymphocytes # (A) 2.88 X 10*3/uL (0.90-5.00); Lymphocytes % (A) 45.4 %; MCH 29.2 pg (27.0-32.0); MCHC 32.7 g/dL (32.0-37.0); MCV 89.3 FL (80.0-97.0); Mean Platelet Volume 11.4 FL (9.5-12.2); Monocytes # (A) 0.46 X 10*3/uL (0.20-1.00); Monocytes % (A) 7.3 %; NRBC Per 100 WBC 0 X 10*3/uL (0.00-0.01); Neutrophils # (A) 2.83 X 10*3/uL (1.80-7.70); Neutrophils % (A) 44.6 %; Platelet Count 287 X 10*3/uL (140-440); RBC 4.76 X 10*6/uL (4.10-5.20); RDW 12.2 % (11.5-14.5); WBC 6.34 X 10*3/uL (4.50-10.00)
[2023-04-23 14:11] LABS: ALT 17 U/L (8-44); AST 18 U/L (13-35); Albumin 4.4 g/dL (3.8-4.9); Albumin/Globulin Ratio 1.63 Ratio (1.60-3.17); Alkaline Phosphatase 90 U/L (41-126); BUN/Creat Ratio 12.78 Ratio (12.00-20.00); Blood Urea Nitrogen 11.5 mg/dL (9.0-27.0); Calcium 9.9 mg/dL (8.7-10.3); Carbon Dioxide 27.6 mmol/L (21.6-31.8); Chloride 102 mmol/L (96-109); Chol/HDL Ratio 3.75 Ratio; Globulin 2.7 g/dL (1.6-3.3); Glucose 86 mg/dL (70-110); LDL Cholesterol,Calculated 158.6 mg/dL (0.0-131.0); Potassium 4.6 mmol/L (3.5-5.5); Sodium 140 mmol/L (135-145); T4, Free (Free Thyroxine) 1.25 ng/dL (0.80-1.80); Total Bilirubin 0.5 mg/dL (0.3-1.2); Total Protein 7.1 g/dL (6.2-8.2)
== END | disposition home or self-care (01) ==
LOC: LABWHC1 08:35
PROVIDERS: ATTEND Internal Medicine
DX: Z00.00 Encounter for general adult medical examination without abnormal findings (principal); E03.9 Hypothyroidism, unspecified
CPT/HCPCS: 36415; 80053; 80061; 84439; 84443; 85025

== ENCOUNTER 2023-09-07 07:13 | Day surgery (SDC) | payer BC, OTHER ==
[2023-09-02 09:33] VITALS: BMI 26.6
[~2023-09-07 07:13] MED LIST changes: -LACTATED RINGERS 1,000 ML IV SCH; +LIDOCAINE 1% (10MG/ML) FOR IV START INTRADERMA PRN
[2023-09-07] MEDS ORDERED: LIDOCAINE 1% INJ 10MG/ML (20 ML MDV) ONE (07:35)
[2023-09-07] MEDS: LACTATED RINGERS 1,000 ML IV SCH (07:35)
[2023-09-07] MEDS ORDERED: PROPOFOL 10 MG/ML 20 ML VIAL IV ONE (07:35)
--- NOTE | 2023-09-07 07:39 | P.GSHP ---
History of Present Illness H&P Date: 09/07/23 CHIEF COMPLAINT: GI bleed HISTORY OF PRESENT ILLNESS: The patient is a 53-year-old male who presents with GI bleed. Upper and lower endoscopy were offered for further evaluation and management. PAST MEDICAL HISTORY: Please see list. PAST SURGICAL HISTORY: Please see list. MEDICATIONS: Please see list. ALLERGIES: Please see list. SOCIAL HISTORY: No illicit drug use FAMILY HISTORY: No reports of Crohn disease or ulcerative colitis. REVIEW OF ORGAN SYSTEMS: CONSTITUTIONAL: No reports of fevers or chills. GI: Denies any blood in stools or constipation. PHYSICAL EXAM: VITAL SIGNS: Stable GENERAL: Well-developed pleasant in no acute distress. HEENT: No scleral icterus. Extraocular movements grossly intact. Moist buccal mucosa. NECK: Supple without lymphadenopathy. CHEST: Unlabored respirations. Equal bilateral excursions. CARDIOVASCULAR: Regular rate and rhythm. Distal 2+ pulses. ABDOMEN: Soft, nondistended. MUSCULOSKELETAL: No clubbing, cyanosis, or edema. ASSESSMENT: 1. GI bleed PLAN: 1. Recommend proceeding with an upper and lower endoscopy Past Medical History Past Medical History: Asthma, GERD/Reflux, Thyroid Disorder Additional Past Medical History / Comment(s): WAS SEEN IN ER R/T FELT LIKE THROAT WAS CLOSING 01/29/21. VERTIGO AT TIMES History of Any Multi-Drug Resistant Organisms: None Reported Past Surgical History: Orthopedic Surgery, Tubal Ligation, Uterine Ablation Additional Past Surgical History / Comment(s): spinal fusion 2020, colonoscopy egd Past Anesthesia/Blood Transfusion Reactions: No Reported Reaction Additional Past Anesthesia/Blood Transfusion Reaction / Comment(s): no blood transfusion Past Psychological History: No Psychological Hx Reported Smoking Status: Former smoker Past Alcohol Use History: None Reported Additional Past Alcohol Use History / Comment(s): QUIT SMOKING 25 YEARS AGO Past Drug Use History: None Reported - Past Family History Mother Family Medical History: Cancer Additional Family Medical History / Comment(s): breast Medications and Allergies Home Medications Medication Instructions Recorded Confirmed Type Albuterol Inhaler [Ventolin Hfa 2 puff INHALATION RT-Q4H PRN 01/23/21 09/07/23 History Inhaler] Budesonide/Formoterol Fumarate 2 puff INHALATION RT-BID 01/23/21 09/07/23 History [Symbicort 80-4.5 Mcg Inhaler] Levothyroxine Sodium [Synthroid] 112 mcg PO DAILY 01/23/21 09/07/23 History Loratadine 10 mg PO HS 09/02/23 09/07/23 History Allergies Allergy/AdvReac Type Severity Reaction Status Date / Time No Known Allergies Allergy Verified 09/07/23 07:30 Surgical - Exam Vital Signs Temp Pulse Resp BP Pulse Ox 98.2 F 74 16 130/70 95 09/07/23 07:25 09/07/23 07:25 09/07/23 07:25 09/07/23 07:25 09/07/23 07:25
--- NOTE | 2023-09-07 07:49 | P.PCN ---
Date of Procedure: 09/07/23 Description of Procedure: PREOPERATIVE DIAGNOSIS: Gastrointestinal bleeding POSTOPERATIVE DIAGNOSIS: Gastroesophageal reflux disease with erosive esophagitis Duodenitis Diaphragmatic hiatal hernia OPERATION: Esophagogastroduodenoscopy with biopsies along esophagus, antrum and duodenum SURGEON: Isis Hurtado MD ANESTHESIA: MAC. INDICATIONS: The patient is a 53-year-old female who presents with gastrointestinal bleeding. Benefits and risks of the procedure were described. Informed consent was ob tained. DESCRIPTION: The patient was brought into the endoscopy suite and laid in the left lateral decubitus position. An Olympus gastroscope was passed along the posterior oropharynx down to the distal esophagus where the squamocolumnar junction was encountered at 40 cm from the incisors. The stomach was entered and no bile reflux was found. Additional findings are listed below. Biopsies with cold forceps were obtained of the antrum. The first through third portion of the duodenum was examined. Retroflexion of the scope confirmed Hill grade 3 lower esophageal valve. The squamocolumnar junction demonstrated LA grade B erosive esophagitis. The stomach was desufflated. The patient tolerated the procedure well. FINDINGS: Squamocolumnar junction 40 cm from the incisors. Diaphragmatic hiatus at 41 cm. Hiatal hernia, 1 cm Hill grade 3 lower esophageal valve. LA grade B erosive esophagitis. Biopsies obtained. Biopsies obtained of the duodenum. Chronic gastritis with biopsies obtained. RECOMMENDATIONS: Upper endoscopy as needed.
[2023-09-07 07:53] VITALS: TEMP 98.2
--- NOTE | 2023-09-07 08:14 | P.PCN ---
Date of Procedure: 09/07/23 Description of Procedure: PREOPERATIVE DIAGNOSIS: GI bleed POSTOPERATIVE DIAGNOSIS: Tubular adenoma transverse colon Sigmoid diverticulosis, few Internal hemorrhoids, grade 2 OPERATION: Colonoscopy to the ileocecal valve and appendiceal orifice, cecum Colonoscopy with hot snare polypectomy SURGEON: Isis Hurtado MD. ANESTHESIA: MAC. INDICATIONS: The patient is an 53-year-old female who presents with GI bleed. Benefits and risks were described and informed consent was obtained. DESCRIPTION OF PROCEDURE: The patient had undergone GoLytely prep. The patient had been brought into the operating room and laid in the left lateral decubitus position. After adequate intravenous sedation, the rectum was examined with 2% lidocaine jelly. The prostate was unremarkable. External hemorrhoids were encountered. The rectal tone was within normal limits. No lesions were palpated in the rectal vault. An Olympus colonoscope was advanced until the cecum, ileocecal valve and appendiceal orifice were clearly viewed. The prep was excellent. Sigmoid diverticulosis was encountered. Colonic polyps were found and removed. No evidence of focal colitis was found. Retroflexion of the scope demonstrated grade 2 internal hemorrhoids without active bleeding or inflammation. The colon was desufflated. The patient had tolerated the procedure well. Withdrawal time was over 6 minutes. FINDINGS: Aronchick preparation quality scale 1 (1-5) Internal hemorrhoids, grade 2 External hemorrhoids, grade 2. No arteriovenous malformations. Sigmoid diverticulosis, few Removal of 1 polyps: - Snare polypectomy transverse colon, 5 mm tubulovillous adenoma No focal colitis. RECOMMENDATIONS: Repeat colonoscopy 3 years, 2026 Plan - Discharge Summary Discharge Rx Participant: No New Discharge Prescriptions: New Pantoprazole [Protonix] 40 mg PO DAILY #14 tab Continue Budesonide/Formoterol Fumarate [Symbicort 80-4.5 Mcg Inhaler] 2 puff INHALATION RT-BID Albuterol Inhaler [Ventolin Hfa Inhaler] 2 puff INHALATION RT-Q4H PRN PRN Reason: Shortness Of Breath Levothyroxine Sodium [Synthroid] 112 mcg PO DAILY Loratadine 10 mg PO HS Discharge Medication List Albuterol Inhaler [Ventolin Hfa Inhaler] 2 puff INHALATION RT-Q4H PRN 01/23/21 [History] Budesonide/Formoterol Fumarate [Symbicort 80-4.5 Mcg Inhaler] 2 puff INHALATION RT-BID 01/23/21 [History] Levothyroxine Sodium [Synthroid] 112 mcg PO DAILY 01/23/21 [History] Loratadine 10 mg PO HS 09/02/23 [History] Pantoprazole [Protonix] 40 mg PO DAILY #14 tab 09/07/23 [Rx] Follow up Appointment(s)/Referral(s): sIis Hurtado MD [STAFF PHYSICIAN] - 10/04/23 3:30 pm Patient Instructions/Handouts: Colorectal Polyps (GEN), Diverticulosis (GEN), Hemorrhoids (DC) Activity/Diet/Wound Care/Special Instructions: Repeat colonoscopy 3 years, 2026 Discharge Disposition: HOME SELF-CARE
[2023-09-07 08:47] VITALS: BP 114/66; PULSE 58; RESP 14
== END 2023-09-07 08:57 | disposition home or self-care (01) ==
LOC: ORWHC2ENDO 07:13
PROVIDERS: ATTEND Surgery Plastic and Reconstructive Surgery
DX: K29.50 Unspecified chronic gastritis without bleeding (principal); D12.3 Benign neoplasm of transverse colon; K57.30 Diverticulosis of large intestine without perforation or abscess without bleeding; J45.909 Unspecified asthma, uncomplicated; K21.00 Gastro-esophageal reflux disease with esophagitis, without bleeding; K29.80 Duodenitis without bleeding; K44.9 Diaphragmatic hernia without obstruction or gangrene; K64.1 Second degree hemorrhoids; E07.9 Disorder of thyroid, unspecified; Z79.51 Long term (current) use of inhaled steroids; Z79.890 Hormone replacement therapy; Z87.891 Personal history of nicotine dependence; Z98.51 Tubal ligation status
CPT/HCPCS: 88305; 45385; 43239; J2001; J2704

== ENCOUNTER → 2023-09-23 | Outpatient (CLI) | payer BC, OTHER ==
--- NOTE | 2023-09-26 13:33 | MM ---
Reason for Exam: Screening (asymptomatic). Last mammogram was performed 1 year(s) and 1 month(s) ago. Patient History: Menarche at age 12. First Full-Term at age 27. Mother had breast cancer at or over age 50. Risk Values: Latonia 5 year model risk: 2.2%. NCI Lifetime model risk: 15.8%. Prior Study Comparison: 08/10/2021 Bilateral Screening Mammogram, [facility]. 08/27/2022 Bilateral Screening Mammogram, [facility]. Tissue Density: The breasts are heterogeneously dense, which may obscure small masses. Findings: Analyzed By CAD. There is no suspicious group of microcalcifications or new suspicious mass in either breast. Overall Assessment: Negative, BI-RAD 1 Management: Screening Mammogram of both breasts in 1 year. . Patient should continue monthly self-breast exams. A clinical breast exam by your physician is recommended on an annual basis. This exam should not preclude additional follow-up of suspicious palpable abnormalities. Note on Latonia scores and lifetime risk: 1. A Latonia score greater than 3% is considered moderate risk. If this is the case, consider specialist referral to assess eligibility for a risk reducing agent. 2. If overall lifetime risk for the development of breast cancer is 20% or higher, the patient may qualify for future screening with alternating mammogram and breast MRI. Electronically signed and approved by: Pasha Smith M.D. Radiologis
== END | disposition home or self-care (01) ==
LOC: RADMAMWWP 06:39
PROVIDERS: ATTEND Obstetrics & Gynecology
DX: Z12.31 Encounter for screening mammogram for malignant neoplasm of breast (principal); Z80.3 Family history of malignant neoplasm of breast
CPT/HCPCS: 77063; 77067

== ENCOUNTER → 2023-10-07 | Outpatient (CLI) | payer BC, OTHER | END | disposition home or self-care (01) | LOC: LABWHC1 08:23 | PROVIDERS: ATTEND Surgery Plastic and Reconstructive Surgery | DX: Z01.818 Encounter for other preprocedural examination (principal); I77.89 Other specified disorders of arteries and arterioles; R07.89 Other chest pain; R94.31 Abnormal electrocardiogram [ECG] [EKG] | CPT/HCPCS: 36415; 93005 ==

== ENCOUNTER → 2024-02-11 | Outpatient (CLI) | payer BC, OTHER | END | disposition home or self-care (01) | LOC: LABWHC1 09:09 | PROVIDERS: ATTEND Internal Medicine | DX: E06.3 Autoimmune thyroiditis (principal) | CPT/HCPCS: 36415; 84443 ==

== ENCOUNTER → 2024-10-15 | Outpatient (CLI) | payer BC, OTHER ==
--- NOTE | 2024-10-15 18:34 | MM ---
Reason for Exam: Screening (asymptomatic). Last screening mammogram was performed 12 month(s) ago. Patient History: Menarche at age 12. First Full-Term at age 27. Mother had breast cancer, age 75. Risk Values: Latonia 5 year model risk: 2.3%. NCI Lifetime model risk: 15.5%. Prior Study Comparison: 08/10/2021 Bilateral Screening Mammogram, [facility]. 08/27/2022 Bilateral Screening Mammogram, [facility] . 09/23/2023 Bilateral MG 3D screening mammo w/cad, [facility]. Tissue Density: The breasts are heterogeneously dense, which may obscure small masses. Findings: Analyzed By CAD. Chronic nodularity left breast. There is no suspicious group of microcalcifications or new suspicious mass in either breast. Overall Assessment: Benign, BI-RAD 2 Management: Screening Mammogram of both breasts in 1 year. Patient should continue monthly self-breast exams. A clinical breast exam by your physician is recommended on an annual basis. This exam should not preclude additional follow-up of suspicious palpable abnormalities. Note on Latonia scores and lifetime risk: 1. A Latonia score greater than 3% is considered moderate risk. If this is the case, consider specialist referral to assess eligibility for a risk reducing agent. 2. If overall lifetime risk for the development of breast cancer is 20% or higher, the patient may qualify for future screening with alternating mammogram and breast MRI. [facility], , 10/15/2024 5:38 PM. Electronically signed and approved by: William Shaw M.D. Radiologist
== END | disposition home or self-care (01) ==
LOC: RADMAMWWP 16:12
PROVIDERS: ATTEND Obstetrics & Gynecology
DX: Z12.31 Encounter for screening mammogram for malignant neoplasm of breast (principal); R92.333 Mammographic heterogeneous density, bilateral breasts; Z80.3 Family history of malignant neoplasm of breast; N63.20 Unspecified lump in the left breast, unspecified quadrant
CPT/HCPCS: 77063; 77067